=== PATIENT | female | born 1995 | race Caucasian/White ===

== ENCOUNTER 2021-03-15 03:45 | Emergency (ER) | payer OTHER ==
[~2021-03-15] VITALS: Ht 160 cm; Wt 93.0 kg
[2021-03-15] MEDS ORDERED: PEPCID20 MG PO (04:18)
[2021-03-15] MEDS ORDERED: ZOFRAN ODT4 MG PO (04:18)
[2021-03-15] MEDS ORDERED: CARAFATE1 GM PO (04:18)
[2021-03-15 04:46] VITALS: BP 120/72
--- NOTE | 2021-03-15 10:55 | EKG ---
[place] [address] ELECTROCARDIOGRAM REPORT Name: SREE PEDRO Room: [facility]#: [id number] Admission: 03/15/21 Attend Phys: Discharge: 03/15/21 Date of : 89 Date of Service: 03/15/21 0356 Report #: [id number] THIS REPORT FOR: //name// [facility] ED Test Date: 2021-03-15 Test Time: 03:56:44 Pat Name: SREE PEDRO Department: Room: Gender: F Twister In: : 1995 Requested By: Iman Tripp Order Number: [id number] MD: Collin Garcia Measurements Intervals [place] Rate: 82 P: 29 [place]: 158 QRS: 1 QRSD: 92 T: -2 QT: 372 QTc: 435 Interpretive Statements Sinus rhythm Low voltage, precordial leads Nonspecific T abnormalities, anterior leads No previous ECG available for comparison Electronically Signed On 03-15-2021 10:55:[address] [employer] by Collin Garcia [email or web address] <ELECTRONICALLY SIGNED> By: Collin Garcia MD, [facility] 03/15/21 1055 0356 0356 Collin Garcia MD, FACC /EPI
== END 2021-03-15 04:46 | disposition home or self-care (01) ==
LOC: M.ERS 03:45
DX: F41.9 Anxiety disorder, unspecified (principal); R10.13 Epigastric pain; R11.10 Vomiting, unspecified; Z90.49 Acquired absence of other specified parts of digestive tract; Z88.5 Allergy status to narcotic agent